=== PATIENT | female | born 1985 | race American Indian/Alaskan Native ===

== ENCOUNTER 2016-07-04 18:58 | Emergency (ER) | payer BC, MEDICAID ==
--- NOTE | 2016-07-04 20:24 | Emergency Department Report ---
Chief Complaint: Abdominal Pain Stated Complaint: NO BABY MOVEMENT UNSURE OF WKS Time Seen by Provider: 07/04/16 20:21 - HPI History of Present Illness: Patient here complaining that she has no movement from her baby for 2-3 days. She said that her period is very irregular and she does not know how many weeks that she is. She says she took a home test and it was positive. She said she had menstrual cycle March 2016 and it was regular and that she had one in May that she just had spotting. Patient denies any abdominal pain at present but says she was having abdominal pain on and off today. Denies any vaginal bleeding in, denies any discharge or painful urination. She does not have any care. Plan to do quantitative hCG and if positive will proceed to ultrasound. - ROS Review of Systems: All systems are negative unless stated in HPI above. - Exam Vital Signs: Vital Signs 07/04/16 19:28 Temperature 98.9 F Pulse Rate 64 Respiratory 18 Rate Blood Pressure 159/105 O2 Sat by Pulse 100 Oximetry Physical Exam: General: This is a 31-year-old female that is morbidly obese. Abdomen: Obese, non- tender to palpate in all quadrant. No guarding or rebound tenderness. Normal bowel sounds in all quadrants CV: S1, S2. Regular rate and rhythm. Blood pressure is 159/105 MSE screening note: Focused history and physical exam performed. Due to findings the following was ordered:see mdm ED Medical Decision Making - Medical Decision Making Medical decision making: Patient seen by provider in triage area. Appropriate protocol activated and patient to main ED to be seen by physician. ED Disposition for MSE Condition: Stable Instructions: Abdominal Pain (ED)
[2016-07-04 21:09] LABS: Basophils % (Auto) 0.6 % (0.0-1.8); Eosinophils % (Auto) 0.7 % (0.0-4.3); Hematocrit 35.6 % (30.3-42.9); Hemoglobin 11.9 gm/dl (10.1-14.3); Mean Corpuscular HGB Conc 34 % (30-34); Mean Corpuscular Hemoglobin 27 pg (28-32); Mean Corpuscular Volume 79 fl (79-97); Platelet Count 312 K/mm3 (140-440); Red Cell Distribution Width 15.2 % (13.2-15.2); White Blood Count 8.5 K/mm3 (4.5-11.0)
[2016-07-04 21:18] LABS: INR 0.98 (0.87-1.13)
[2016-07-04 21:28] LABS: Alanine Aminotransferase 11 units/L (7-56); Albumin 3.7 g/dL (3.9-5); Albumin/Globulin Ratio 0.8 %; Alkaline Phosphatase 102 units/L (35-129); Amylase 109 units/L (27-131); Bilirubin,Total 0.3 mg/dL (0.1-1.2); Lipase 62 units/L (13-60); Total Protein 8.1 g/dL (6.3-8.2)
[2016-07-04 21:35] LABS: Bilirubin,Direct < 0.2 mg/dL (0-0.2); Bilirubin,Indirect 0.1 mg/dL
[2016-07-04 22:57] LABS: Bacteria,Urine 2+ /HPF (Negative); Bilirubin,Urine NEG (Negative); Blood,Urine NEG (Negative); Ketones,Urine NEG (Negative); Leukocyte Esterase,Urine MOD (Negative); Mucus,Urine FEW /HPF; Nitrite,Urine POS (Negative); Protein,Urine <15 mg/dL mg/dL (Negative); Urobilinogen,Urine < 2.0 mg/dL (<2.0)
--- NOTE | 2016-07-04 23:58 | Ultrasound Report ---
FINAL REPORT PROCEDURE: US OB < = 14 WEEKS FETUS TECHNIQUE: Real-time transabdominal and transvaginal sonography of the uterus, placenta, amniotic fluid, adnexa, and fetus was performed with image documentation. Measurements were obtained to determine age/size. M-mode Doppler was used to document heartbeat. CPT 30876 and 04937 HISTORY: abdominal pain and COMPARISON: No prior studies are available for comparison. FINDINGS: ADDITIONAL GESTATION: None. Uterus measures 7.6 cm in length. Very early IUP is suspected with tiny gestational sac. Mean sac diameter corresponds to 5 weeks 0 days gestational age with estimated date of delivery of March 06, 2017. No yolk sac or pole is seen at this early age and viability is uncertain. Right ovary measures 2.5 x 1.5 x 1.2 cm. Left ovary measures 3.1 x 2.7 x 2.7 cm. 2.1 cm solid-appearing structure is suggested in the left ovary but this may be a collapsed cyst. Minimal free pelvic fluid is physiologic. IMPRESSION: Likely very early IUP is seen at 5 weeks 0 days gestational age. As no pole is yet identified, viability is uncertain. Correlation with serial quantitative beta HCG levels is recommended and repeat ultrasound in 2 weeks time may be useful.
--- NOTE | 2016-07-04 23:59 | Ultrasound Report ---
FINAL REPORT PROCEDURE: US OB TRANSVAGINAL TECHNIQUE: Real-time transabdominal and transvaginal sonography of the uterus, placenta, amniotic fluid, adnexa, and fetus was performed with image documentation. Measurements were obtained to determine age/size. M-mode Doppler was used to document heartbeat. CPT 98091 and 35520 HISTORY: abdominal pain and COMPARISON: No prior studies are available for comparison. FINDINGS: ADDITIONAL GESTATION: None. Uterus measures 7.6 cm in length. Very early IUP is suspected with tiny gestational sac. Mean sac diameter corresponds to 5 weeks 0 days gestational age with estimated date of delivery of March 06, 2017. No yolk sac or pole is seen at this early age and viability is uncertain. Right ovary measures 2.5 x 1.5 x 1.2 cm. Left ovary measures 3.1 x 2.7 x 2.7 cm. 2.1 cm solid-appearing structure is suggested in the left ovary but this may be a collapsed cyst. Minimal free pelvic fluid is physiologic. IMPRESSION: Likely very early IUP is seen at 5 weeks 0 days gestational age. As no pole is yet identified, viability is uncertain. Correlation with serial quantitative beta HCG levels is recommended and repeat ultrasound in 2 weeks time may be useful.
--- NOTE | 2016-07-05 04:57 | Emergency Department Report ---
ED General Adult HPI - General Chief complaint: Abdominal Pain Stated complaint: NO BABY MOVEMENT UNSURE OF WKS Time Seen by Provider: 07/04/16 20:19 Source: patient Mode of arrival: Ambulatory Limitations: No Limitations - History of Present Illness Initial comments: This is a 31-year-old female, previously unknown to me. She has a medical history of gallstone pancreatitis which has since resolved. The patient reports that gallstone pancreatitis no longer irritates her as she has monitored and modified her diet and she consumes. She is 1, para 0, not really certain what her last period is. The patient presents to the ER with complaint of inability to feel the fetus moving around. She reports that she felt the fetus moving around last week. She does not have any abdominal pain at this time, there is no chest pain or shortness of breath, there is no vaginal discharge, there are no irritative or obstructive urinary symptoms. Symptoms have no exacerbating or relieving factors. -: Gradual Severity scale (0 -10): 3 Consistency: intermittent Improves with: none Worsens with: none Associated Symptoms: denies: confusion, chest pain, cough, diaphoresis, fever/ chills, headaches, loss of appetite, malaise, nausea/vomiting, rash, seizure, shortness of breath, syncope, weakness - Related Data Previous Rx's Medication Instructions Recorded Last Taken Type Doxylamine/Pyridoxine HCl 1 each PO QHS PRN #30 tablet. 07/05/16 Unknown Rx [Diclegilakisha Mondragon 10-10 mg Tablet] Nitrofurantoin [place]/M-Cryst 100 mg PO Q12HR #14 capsule 07/05/16 Unknown Rx [Macrobid CAP] Vit W-Ca,Fe,FA(<1 mg) 1 each PO QDAY #30 tablet 07/05/16 Unknown Rx [ Vitamins] Allergies Allergy/AdvReac Type Severity Reaction Status Date / Time No Known Allergies Allergy Verified 08/22/15 22:34 ED Review of Systems ROS: Stated complaint: NO BABY MOVEMENT UNSURE OF WKS Other details as noted in HPI Constitutional: denies: malaise Eyes: denies: vision change ENT: denies: epistaxis Respiratory: denies: cough Cardiovascular: denies: chest pain Gastrointestinal: denies: abdominal pain Genitourinary: denies: urgency, frequency, discharge, abnormal menses Musculoskeletal: denies: back pain Skin: denies: rash, lesions Neurological: denies: headache, weakness Psychiatric: denies: anxiety ED Past Medical Hx - Past Medical History Hx Congestive Heart Failure: No Hx Diabetes: No Hx Asthma: No Hx COPD: No Additional medical history: MORBID OBESITY - Surgical History Additional Surgical History: GASTRIC BYPASS NOVEMBER 2014 - Social History Smoking Status: Never Smoker - Medications Home Medications: Home Medications Medication Instructions Recorded Confirmed Last Taken Type Doxylamine/Pyridoxine HCl 1 each PO QHS PRN #30 tablet.dr 07/05/16 Unknown Rx [Diclegis Dr 10-10 mg Tablet] Nitrofurantoin [place]/M-Cryst 100 mg PO Q12HR #14 capsule 07/05/16 Unknown Rx [Macrobid CAP] Vit W-Ca,Fe,FA(<1 mg) 1 each PO QDAY #30 tablet 07/05/16 Unknown Rx [ Vitamins] ED Physical Exam - General Limitations: No Limitations General appearance: obese - Head Head exam: Present: atraumatic, normocephalic - Eye Eye exam: Present: normal appearance, EOMI. Absent: nystagmus - ENT ENT exam: Present: normal exam, normal orophraynx, mucous membranes moist - Neck Neck exam: Present: normal inspection, full ROM. Absent: tenderness, meningismus - Respiratory Respiratory exam: Present: normal lung sounds bilaterally. Absent: respiratory distress, wheezes, rales, rhonchi, stridor, chest wall tenderness, accessory muscle use, decreased breath sounds, prolonged expiratory - Cardiovascular Cardiovascular Exam: Present: regular rate, normal rhythm, normal heart sounds. Absent: bradycardia, tachycardia, irregular rhythm, systolic murmur, diastolic murmur, rubs, gallop - GI/Abdominal GI/Abdominal exam: Present: soft, normal bowel sounds. Absent: distended, tenderness, guarding, rebound, rigid, pulsatile mass - Extremities Exam Extremities exam: Present: normal inspection, full ROM, normal capillary refill. Absent: tenderness, pedal edema, joint swelling, calf tenderness - Back Exam Back exam: Present: normal inspection, full ROM. Absent: tenderness, CVA tenderness (R), CVA tenderness (L), muscle spasm, paraspinal tenderness, vertebral tenderness - Neurological Exam Neurological exam: Present: alert, oriented X3, normal gait, other (Extraocular movements intact. Tongue midline. No facial droop. Facial sensation intact to light touch in the V1, V2, V3 distribution bilaterally. 5 and 5 strength in 4 extremities.. Sensation is intact to light touch in 4 extremities.). Absent : motor sensory deficit - Psychiatric Psychiatric exam: Present: normal affect, normal mood - Skin Skin exam: Present: warm, dry, intact, normal color. Absent: rash ED Course Vital Signs 07/04/16 07/05/16 19:28 01:24 Temperature 98.9 F 98.0 F Pulse Rate 64 83 Respiratory 18 16 Rate Blood Pressure 159/105 Blood Pressure 118/87 [Left] O2 Sat by Pulse 100 100 Oximetry - Reevaluation(s) Reevaluation #1: 07/05/16 04:54 Differential diagnosis: , worried well, reassurance Assessment and plan: 31-year-old female who complains of inability to feel the fetus moving around. She has no abdominal pain, rebound, guarding or tenderness. She has no urinary symptoms. Ultrasound demonstrates intrauterine at 5 weeks and 0 days, no pole noted, therefore it is very unlikely that the patient actually felt the fetus moving around. She was counseled appropriately and reassured. She is instructed to follow up with outpatient MEASUREMENT ADVISOR. She will be discharged. Return precautions are extensively reviewed. 07/05/16 04:55 ED Medical Decision Making - Lab Data Result diagrams: 07/04/16 20:50 Vital Signs 07/04/16 07/05/16 19:28 01:24 Temperature 98.9 F 98.0 F Pulse Rate 64 83 Respiratory 18 16 Rate Blood Pressure 159/105 Blood Pressure 118/87 [Left] O2 Sat by Pulse 100 100 Oximetry Lab Results 07/04/16 07/04/16 07/04/16 Range/Units 20:50 20:50 20:50 WBC 8.5 (4.5-11.0) K/mm3 RBC 4.50 (3.65-5.03) M/mm3 Hgb 11.9 (10.1-14.3) gm/dl Hct 35.6 (30.3-42.9) % MCV 79 (79-97) fl MCH 27 L (28-32) pg MCHC 34 (30-34) % RDW 15.2 (13.2-15.2) % Plt Count 312 (140-440) K/mm3 Lymph % (Auto) 17.5 (13.4-35.0) % [place] % (Auto) 8.2 H (0.0-7.3) % Eos % (Auto) 0.7 (0.0-4.3) % Baso % (Auto) 0.6 (0.0-1.8) % Lymph # 1.5 (1.2-5.4) K/mm3 [place] # 0.7 (0.0-0.8) K/mm3 Eos # 0.1 (0.0-0.4) K/mm3 Baso # 0.0 (0.0-0.1) K/mm3 Seg Neutrophils % 73.0 H (40.0-70.0) % Seg Neutrophils # 6.2 (1.8-7.7) K/mm3 PT 12.9 (12.2-14.9) Sec. INR 0.98 (0.87-1.13) APTT 32.0 (24.2-36.6) Sec. Total Bilirubin 0.3 (0.1-1.2) mg/dL Direct Bilirubin < 0.2 (0-0.2) mg/dL Indirect Bilirubin 0.1 mg/dL AST 12 (5-40) units/L ALT 11 (7-56) units/L Alkaline Phosphatase 102 (35-129) units/L Total Protein 8.1 (6.3-8.2) g/dL Albumin 3.7 L (3.9-5) g/dL Albumin/Globulin Ratio 0.8 % Amylase 109 (27-131) units/L Lipase 62 H (13-60) units/L HCG, Quant (0-4) mIU/mL Urine Color (Yellow) Urine Turbidity (Clear) Urine pH (5.0-7.0) Ur Specific [place] (1.003-1.030) Urine Protein (Negative) mg/dL Urine Glucose (UA) (Negative) mg/dL Urine Ketones (Negative) mg/dL Urine Blood (Negative) Urine Nitrite (Negative) Urine Bilirubin (Negative) Urine Urobilinogen (<2.0) mg/dL Ur Leukocyte Esterase (Negative) Urine WBC (Auto) (0.0-6.0) /HPF Urine RBC (Auto) (0.0-6.0) /HPF U Epithel Cells (Auto) (0-13.0) /HPF Urine Bacteria (Auto) (Negative) /HPF Urine Mucus /HPF 07/04/16 07/04/16 Range/Units 20:50 21:55 WBC (4.5-11.0) K/mm3 RBC (3.65-5.03) M/mm3 Hgb (10.1-14.3) gm/dl Hct (30.3-42.9) % MCV (79-97) fl MCH (28-32) pg MCHC (30-34) % RDW (13.2-15.2) % Plt Count (140-440) K/mm3 Lymph % (Auto) (13.4-35.0) % [place] % (Auto) (0.0-7.3) % Eos % (Auto) (0.0-4.3) % Baso % (Auto) (0.0-1.8) % Lymph # (1.2-5.4) K/mm3 [place] # (0.0-0.8) K/mm3 Eos # (0.0-0.4) K/mm3 Baso # (0.0-0.1) K/mm3 Seg Neutrophils % (40.0-70.0) % Seg Neutrophils # (1.8-7.7) K/mm3 PT (12.2-14.9) Sec. INR (0.87-1.13) APTT (24.2-36.6) Sec. Total Bilirubin (0.1-1.2) mg/dL Direct Bilirubin (0-0.2) mg/dL Indirect Bilirubin mg/dL AST (5-40) units/L ALT (7-56) units/L Alkaline Phosphatase (35-129) units/L Total Protein (6.3-8.2) g/dL Albumin (3.9-5) g/dL Albumin/Globulin Ratio % Amylase (27-131) units/L Lipase (13-60) units/L HCG, Quant 524.4 H (0-4) mIU/mL Urine Color Yellow (Yellow) Urine Turbidity Cloudy (Clear) Urine pH 5.0 (5.0-7.0) Ur Specific [place] 1.014 (1.003-1.030) Urine Protein <15 mg/dl (Negative) mg/dL Urine Glucose (UA) Neg (Negative) mg/dL Urine Ketones Neg (Negative) mg/dL Urine Blood Neg (Negative) Urine Nitrite Pos (Negative) Urine Bilirubin Neg (Negative) Urine Urobilinogen < 2.0 (<2.0) mg/dL Ur Leukocyte Esterase Mod (Negative) Urine WBC (Auto) 34.0 H (0.0-6.0) /HPF Urine RBC (Auto) 3.0 (0.0-6.0) /HPF U Epithel Cells (Auto) 14.0 H (0-13.0) /HPF Urine Bacteria (Auto) 2+ (Negative) /HPF Urine Mucus Few /HPF Critical care attestation.: If time is entered above; I have spent that time in minutes in the direct care of this critically ill patient, excluding procedure time. ED Disposition Clinical Impression: Qualifiers: Weeks of gestation: less than 8 weeks Qualified Code(s): Z3A.01 - Less than 8 weeks gestation of Disposition: DISCHARGED TO HOME OR SELFCARE Is pt being admited?: No Does the pt Need Aspirin: No Condition: Stable Instructions: (ED) Additional Instructions: Follow-up with a primary care [facility]MENT ADVISOR doctor within the next week to initiate care. Take nausea medication as needed, take the vitamins as directed, take the antibiotic therapy for probable urinary tract infection as directed. Please note that initial blood pressure was somewhat elevated, therefore it is very important to closely follow up with an outpatient MEASUREMENT ADVISOR doctor. Return to the ER right away with severe pain, nausea, vomiting, fevers or chills, inability to tolerate liquid feeds, vaginal bleeding. Make certain to avoid heavy and spicy foods. Referrals: PRIMARY CAREMD [Primary Care Provider] - 3-5 Days NOAH MAYO MD [Staff Physician] - 3-5 Days [facility] [Provider Group] - 3-5 Days
[2016-07-05 05:40] VITALS: BP 138/87
== END 2016-07-05 05:58 | disposition home or self-care (01) ==
LOC: ED 18:58
DX: Z34.01 Encounter for supervision of normal first pregnancy, first trimester (principal); E66.01 Morbid (severe) obesity due to excess calories; Z3A.01 Less than 8 weeks gestation of pregnancy
CPT/HCPCS: 36415; 76801; 76817; 80074; 81001; 82150; 83690; 84702; 85025; 85610; 85730

== ENCOUNTER 2017-02-04 11:42 | Outpatient (CLI) | payer MEDICAID ==
--- NOTE | 2017-02-04 13:44 | Ultrasound Report ---
BIOPHYSICAL PROFILE: 2 - breathing movements 2 - movements 2 - posture and tone 2 - Qualitative amniotic fluid volume 8 - TOTAL SCORE OF POSSIBLE 8 Heart Rate (bpm) 136
--- NOTE | 2017-02-04 13:45 | Ultrasound Report ---
Limited OB ultrasound. Findings: A single intrauterine is identified in transverse position with the head on the maternal left. The ROSARIO is normal at 12.7 cm. The heart rate is 135 beats per minute.
== END 2017-02-04 13:00 | disposition home or self-care (01) ==
LOC: TRG 11:42
PROVIDERS: ATTEND Obstetrics & Gynecology
DX: O32.2XX0 Maternal care for transverse and oblique lie, not applicable or unspecified (principal); O47.03 False labor before 37 completed weeks of gestation, third trimester; Z3A.35 35 weeks gestation of pregnancy
CPT/HCPCS: 76815; 76819

== ENCOUNTER 2017-02-21 05:34 | Inpatient (IN) | payer MEDICAID ==
[2017-02-21] MEDS ORDERED: LACTATED RINGERS 1,000 ML ONE (05:59)
[2017-02-21] MEDS ORDERED: REGLAN IV ONE (06:14)
[2017-02-21] MEDS ORDERED: PEPCID IV ONE (06:14)
[2017-02-21] MEDS ORDERED: BICITRA PO ONE (06:14)
[2017-02-21 06:33] LABS: Basophils % (Auto) 0.4 % (0.0-1.8); Eosinophils % (Auto) 0.5 % (0.0-4.3); Hemoglobin 12.6 gm/dl (10.1-14.3); Mean Corpuscular HGB Conc 34 % (30-34); Mean Corpuscular Hemoglobin 28 pg (28-32); Mean Corpuscular Volume 81 fl (79-97); Platelet Count 323 K/mm3 (140-440); Red Blood Count 4.56 M/mm3 (3.65-5.03); Red Cell Distribution Width 14.8 % (13.2-15.2); White Blood Count 12.2 K/mm3 (4.5-11.0)
[2017-02-21] MEDS ORDERED: ANCEF/STERILE WATER 2 GM/20 ML 2 GM/20 ML SYRINGE IV ONE (06:51)
[2017-02-21] MEDS ORDERED: PITOCin/NS 20 UNIT/1000ML DRIP 20 UNITS/1,000 ML BAG IV SCH ×2 (07:00→16:00)
[2017-02-21] MEDS ORDERED: ANCEF/STERILE WATER 2 GM/20 ML IV NR (07:00)
[2017-02-21] MEDS ORDERED: LACTATED RINGERS 1,000 ML IV SCH (07:00)
--- NOTE | 2017-02-21 07:22 | Anesthesia Consultation ---
Anesthesia Consult and Med Hx Date of service: 02/21/17 - Airway Anesthetic Teeth Evaluation: Good ROM Head & Neck: Adequate Mental/Hyoid Distance: Adequate Mallampati Class: Class II Intubation Access Assessment: Probably Good - Pre-Operative Health Status ASA Pre-Surgery Classification: ASA3 Proposed Anesthetic Plan: Epidural, Spinal - Pulmonary Hx Asthma: No COPD: No Hx Pneumonia: No - Cardiovascular System Hx Hypertension: Yes ([facility] 09/2016) - Central Nervous System Hx Seizures: No Hx Psychiatric Problems: No - Endocrine Hx Renal Disease: No Hx End Stage Renal Disease: No Hx Hypothyroidism: No Hx Hyperthyroidism: No - Hematic Hx Anemia: Yes Hx Sickle Cell Disease: No - Other Systems Hx Alcohol Use: No Hx Obesity: Yes (had gastric bypass 2014)
[2017-02-21] MEDS ORDERED: DILAUDID IV PRN (08:02)
[2017-02-21] MEDS ORDERED: NARCAN 0.4 MG/1 ML IV PRN ×2 (08:02→15:24)
[2017-02-21] MEDS ORDERED: ZOFRAN IV PRN (08:02)
[2017-02-21] MEDS ORDERED: TORADOL IV PRN (08:02)
--- NOTE | 2017-02-21 08:02 | Anesthesia Day of Surgery ---
Anesthesia Day of Surgery - Day of Surgery Patient Examined: Yes Patient H&P Reviewed: Yes Patient is NPO: Yes
--- NOTE | 2017-02-21 08:05 | History and Physical Report ---
History of Present Illness Date of examination: 02/21/17 Date of admission: 02/21/17 05:34 Chief complaint: Scheduled C Section History of present illness: Pt is a 31yo BF EDC 03/10/17; EGA 37 4/7 weeks presents for C Section due to Chronic hypertension and Breech presentation. She received care at [facility] since 16 weeks, and course has been complicated by Chronic hypertension for which she takes Labetolol 100mg BID and followed by [facility], along with history of Gastric bypass and Obesity. records are available and GBS is unknown. Past History Past Medical History: hypertension, other (lupus) Past Surgical History: gastric bypass BILINGUAL SALES REPRESENTATIVE History: herpes Family/Genetic History: diabetes, hypertension, cancer Social history: no significant social history, single - Obstetrical History Expected Date of Delivery: 03/10/17 Actual Gestation: 37 Week(s) 4 Day(s) : 1 Medications and Allergies Allergies Allergy/AdvReac Type Severity Reaction Status Date / Time No Known Allergies Allergy Verified 08/22/15 22:34 Home Medications Medication Instructions Recorded Confirmed Last Taken Type Vit W-Ca,Fe,FA(<1 mg) 1 each PO QDAY #30 tablet 07/05/16 02/21/1702/20 Rx [ Vitamins] Aspirin [Aspirin BABY CHEW TAB] 81 mg PO QDAY 02/21/17 02/21/17 02/20/17 History Labetalol [Normodyne TAB] 100 mg PO BID 02/21/17 02/21/17 2 Weeks Ago History Active Meds: Active Medications Cefazolin Sodium (Ancef/Sterile Water 2 Gm/20 Ml) 2 gm IV PREOP NR Stop: 02/21/17 18:00 Lactated Ringer's (Lactated Ringers) 1,000 mls @ 2,250 mls/hr IV PREOP AL Stop: 02/22/17 07:27 Last Admin: 02/21/17 06:05 Dose: 2,250 mls/hr Oxytocin/Sodium Chloride (Pitocin/Ns 20 Unit/1000ml Drip) 20 units in 1,000 mls @ 0 mls/hr IV TITR AL PRN Reason: As Directed Review of Systems All systems: negative - Vital Signs Vital signs: Vital Signs Temp Pulse Resp BP Pulse Ox 98.3 F 75 20 132/72 99 02/21/17 06:12 02/21/17 06:12 02/21/17 06:12 02/21/17 06:12 02/21/17 06:12 Temp Pulse Resp BP Pulse Ox 98.3 F 70 20 132/72 98 02/21/17 06:12 02/21/17 07:56 02/21/17 06:12 02/21/17 06:12 02/21/17 07:56 - Physical Exam Breasts: Positive: deferred Cardiovascular: Regular rate Lungs: Positive: Clear to auscultation Abdomen: Positive: normal appearance Genitourinary (Female): Positive: normal external genitalia Uterus: Positive: enlarged Extremities: Positive: normal - Obstetrical FHR: category 1 Uterine Contraction Monitor Mode: External Results Result Diagrams: 02/21/17 06:05 Abnormal lab results 02/21/17 Range/Units 06:05 WBC 12.2 H (4.5-11.0) K/mm3 Lymph % (Auto) 11.2 L (13.4-35.0) % Seg Neutrophils % 83.1 H (40.0-70.0) % Seg Neutrophils # 10.1 H (1.8-7.7) K/mm3 All other labs normal. Assessment and Plan - Patient Problems (1) 37 weeks gestation of Onset Date: 02/21/17 Current Visit: Yes Status: Acute Plan to address problem: A: IUP @ 37 4/7 weeks Chronic hypertension Breech presentation History of Gastric Bypass P: Admit to L&D for C Section (2) Breech presentation Onset Date: 02/21/17 Current Visit: Yes Status: Acute Qualifiers: Fetus number: single or unspecified fetus Qualified Code(s): O32.1XX0 - Maternal care for breech presentation, not applicable or unspecified
[2017-02-21] MEDS ORDERED: SODIUM CHLORIDE FLUSH SYRINGE 10 ML IV NR ×2 (09:00→16:00)
[2017-02-21] MEDS ORDERED: REGLAN ONE (12:02)
[2017-02-21] MEDS ORDERED: BICITRA ONE (12:04)
[2017-02-21] MEDS ORDERED: NEO SYNEPHRINE/NS Syringe(OR USE) IV ONE (13:00)
[2017-02-21] MEDS ORDERED: WATER FOR IRRIG STERILE IR ONE (13:55)
[2017-02-21] MEDS ORDERED: NACL 0.9% IR ONE (13:55)
[2017-02-21] MEDS ORDERED: MORPHINE ONE (13:57)
--- NOTE | 2017-02-21 15:20 | Operative Report ---
Operative Report Operative Report: Date of procedure: 02/21/2017 Pre-operative diagnosis: 1. Intrauterine at 37-4/7 weeks 2. Chronic hypertension 3. Breech presentation 4. History of gastric bypass Post-operative diagnosis: Same Procedure name(s): Primary low transverse section Surgeon: Fam Gerard MD Licensed Insurance Agent: None Anesthesia: Spinal anesthesia by Dr. Perez EBL: 600 mL's Findings: A 2333 g female infant Apgars 8 at 1 minute and 9 at 5 minutes. Clear amniotic fluid. Normal uterus. Normal tubes and ovaries bilaterally. Procedure: After the patient was prepped and draped in usual sterile fashion, and after satisfactory level of epidural anesthesia was obtained, the skin knife was used to make a transverse skin incision. The incision was excised down to layer of the fascia, which was nicked in the midline and extended laterally using the Bovie cautery. The rectus muscles were dissected off the rectus fascia both superiorly and inferiorly. The rectus bellies in the midline, and the peritoneum was entered under direct visualization. The peritoneal incision was extended superiorly and inferiorly. A bladder flap was created and the bladder blade was then placed. The uterus was scored in a curvilinear linear fashion, entered in the midline revealing clear amniotic fluid. The infant's body was turned so that the 's head was delivered onto the surgical field, and the oropharynx and nasopharynx were bulb suctioned. The rest of the infant's body was delivered, cord was doubly clamped and cut and the was handed to the waiting respiratory team. Cord blood was then obtained. The placenta was manually removed from the uterus , and the uterus removed from its normal anatomical position. After gentle uterine lavage, the incision was inspected and found to be without extensions. It was then closed in 2 layers using 0 Vicryl suture in a running interlocking fashion, the second layer imbricating the first. After good hemostasis was achieved, copious amounts or irrigation was performed, and the gutters were suctioned free of blood and blood clots. Tisseel sealant was sprayed across the uterine incision. The uterus was then returned to its normal anatomical position, and after excellent hemostasis assured, the peritoneum was re- approximated using 3-0 Vicryl suture in a running interlocking fashion, and then the rectus muscles were re-approximated using 3-0 Vicryl suture in a figure -of-eight configuration. The fascia was then re-approximated using 0 Vicryl suture in running interlocking fashion. The subcutaneous layer was made hemostatic using Bovie cautery, the Tisseel sealant was sprayed across the fascial incision and the skin edges re-approximated using 4-0 Vicryl suture in a sub-cuticular fashion. Patient tolerated the procedure well was transported to recovery in stable condition.
[2017-02-21] MEDS ORDERED: LANSINOH TP PRN (15:24)
[2017-02-21] MEDS ORDERED: NORCO 5/325 PO PRN (15:24)
[2017-02-21] MEDS ORDERED: TYLENOL PO PRN (15:24)
[2017-02-21] MEDS ORDERED: TUCKS PAD TP PRN (15:24)
[2017-02-21] MEDS ORDERED: MOTRIN PO PRN (15:24)
[2017-02-21] MEDS ORDERED: MILK OF MAGNESIA PO PRN (15:24)
[2017-02-21] MEDS ORDERED: MYLICON PO PRN (15:24)
[2017-02-21] MEDS ORDERED: SENOKOT PO PRN (15:24)
[2017-02-21] MEDS: BENADRYL IV PRN ×3 (18:06→23:01)
[2017-02-21] MEDS: D5LR 1,000 ML IV SCH (18:06)
[2017-02-21] MEDS: ANCEF/NS 1 GM/50 ML 1 GM/50 ML BAG IV SCH (18:07)
[2017-02-22] MEDS: ANCEF/NS 1 GM/50 ML 1 GM/50 ML BAG IV SCH (02:16)
[2017-02-22] MEDS: D5LR 1,000 ML IV SCH (02:30)
[2017-02-22 05:04] LABS: Hemoglobin 10.6 gm/dl (10.1-14.3)
[2017-02-22] MEDS: NORMODYNE PO SCH ×2 (10:17→22:29)
[2017-02-22] MEDS: PRENATAL VITAMIN PO SCH (10:17)
[2017-02-22] MEDS: FEOSOL PO SCH (10:17)
[2017-02-22] MEDS: PERCOCET 5/325 PO PRN ×2 (10:18→19:38)
--- NOTE | 2017-02-22 11:09 | Progress Note ---
Assessment and Plan - Patient Problems (1) 37 weeks gestation of Onset Date: 02/21/17 Current Visit: Yes Status: Resolved (2) Breech presentation Onset Date: 02/21/17 Current Visit: Yes Status: Resolved Qualifiers: Fetus number: single or unspecified fetus Qualified Code(s): O32.1XX0 - Maternal care for breech presentation, not applicable or unspecified (3) Status post primary low transverse section Onset Date: 02/22/17 Current Visit: Yes Status: Resolved Plan to address problem: A: S/P C Section - POD #1 Doing well Chronic hypertension - BP's stable on Labetolol 100mg BID P: Continue RPOC Anticipate discharge in 24-48hrs Subjective - Subjective Date of service: 02/22/17 Principal diagnosis: s/p Repeat C Section with BTL - POD #1 Interval history: Pt is feeling well without complaints. Bleeding improved. Tolerating a reg diet without nausea or vomiting. Patient reports: appetite normal, voiding normally, pain well controlled, flatus , ambulating normally : doing well, nursing well, bottle feeding Objective - Vital Signs Latest vital signs: Vital Signs Temp Pulse Resp BP BP Pulse Ox 02/22/17 10:17 72 116/68 02/22/17 08:15 98 F 74 20 116/82 02/22/17 05:05 98.8 F 67 20 138/82 02/22/17 02:11 18 02/22/17 01:00 98.6 F 72 20 106/46 02/21/17 20:43 98.5 F 70 20 136/74 02/21/17 17:00 99 F 70 18 117/78 02/21/17 15:22 98.1 F 67 16 121/59 99 Intake and Output 02/21/17 02/22/17 02/22/17 22:59 06:59 14:59 Intake Total 670 1120 120 Output Total 300 1500 Balance 370 -380 120 Intake: IV 550 1000 ANCEF/NS 1 GM/50 ML 1 gm 50 In 50 ml @ 100 mls/hr IV Q8H AL Rx#:[id number] D5lr 1,000 ml @ 125 mls/ 1000 hr IV DIRECT AL Rx#: [id number] Oral 120 Intake, Free Water 120 120 Output: Urine 300 1500 Indwelling Catheter 1500 Other: Total, Intake Amount 120 Total, Output Amount 400 - Exam Breasts: Present: deferred Cardiovascular: Present: Regular rate Lungs: Present: Clear to auscultation Abdomen: Present: normal appearance, soft Uterus: Present: normal, firm, fundal height below umbilicus Extremities: Present: normal Incision: Present: normal, dry, intact, dressed - Labs Labs: Laboratory Tests 02/21/17 02/21/17 02/22/17 06:05 06:05 04:35 WBC 12.2 H RBC 4.56 Hgb 12.6 10.6 Hct 37.0 32.0 MCV 81 MCH 28 MCHC 34 RDW 14.8 Plt Count 323 Lymph % (Auto) 11.2 L [place] % (Auto) 4.8 Eos % (Auto) 0.5 Baso % (Auto) 0.4 Lymph # 1.4 [place] # 0.6 Eos # 0.1 Baso # 0.0 Seg Neutrophils % 83.1 H Seg Neutrophils # 10.1 H Blood Type O POSITIVE Antibody Screen Negative
[2017-02-22] MEDS ORDERED: M-M-R II VACCINE SUB-Q ONE (15:25)
[2017-02-22] MEDS ORDERED: BOOSTRIX IM ONE (15:25)
[2017-02-23] MEDS: PERCOCET 5/325 PO PRN ×2 (02:30→08:43)
[2017-02-23] MEDS: PRENATAL VITAMIN PO SCH (08:44)
[2017-02-23] MEDS: FEOSOL PO SCH (08:44)
[2017-02-23] MEDS: NORMODYNE PO SCH (08:45)
--- NOTE | 2017-02-23 09:38 | Progress Note ---
Assessment and Plan - Patient Problems (1) 37 weeks gestation of Onset Date: 02/21/17 Current Visit: Yes Status: Resolved (2) Breech presentation Onset Date: 02/21/17 Current Visit: Yes Status: Resolved Qualifiers: Fetus number: single or unspecified fetus Qualified Code(s): O32.1XX0 - Maternal care for breech presentation, not applicable or unspecified (3) Status post primary low transverse section Onset Date: 02/22/17 Current Visit: Yes Status: Resolved Plan to address problem: A: S/P C Section - POD #2 Doing well Chronic hypertension - BP's stable on Labetolol 100mg BID P: May go home today Subjective - Subjective Date of service: 02/23/17 Principal diagnosis: s/p Repeat C Section with BTL - POD #2 Interval history: Pt is feeling well without complaints. Tolerating a reg diet without nausea or vomiting, ambulating and voiding without difficulty. Patient reports: appetite normal, voiding normally, pain well controlled, flatus , ambulating normally : doing well, nursing well, bottle feeding Objective - Vital Signs Latest vital signs: Vital Signs Temp Pulse Resp BP BP 02/23/17 08:45 136/78 02/23/17 02:30 20 02/22/17 23:55 98.1 F 95 H 20 130/76 02/22/17 22:29 86 120/70 02/22/17 19:38 16 02/22/17 18:42 98.7 F 73 20 115/63 02/22/17 10:17 72 116/68 Intake and Output 02/22/17 02/23/17 02/23/17 22:59 06:59 14:59 Intake Total 120 360 Output Total 400 Balance -280 360 Intake: Oral 120 360 Output: Urine 400 Void 400 Other: Total, Intake Amount 120 240 Total, Output Amount 400 # Voids Void 1 1 - Exam Breasts: Present: deferred Cardiovascular: Present: Regular rate Lungs: Present: Clear to auscultation Abdomen: Present: normal appearance Uterus: Present: normal, firm, fundal height below umbilicus Extremities: Present: normal Incision: Present: normal, dry, intact
[2017-02-23 11:07] VITALS: BP 125/65
--- NOTE | 2017-02-23 11:14 | Discharge Summary ---
Providers - Providers Date of Admission: 02/21/17 05:34 Date of discharge: 02/23/17 Attending physician: KYRA VILLALOBOS Primary care physician: KYRA VILLALOBOS Hospitalization Reason for admission: section, IUP at term, other (Breech presentation) Delivery: Procedure: section, primary low transverse Episiotomy: none Incision: normal, dry, intact Other procedures: none complications: none Discharge diagnosis: IUP at term delivered Silva baby: female Hospital course: Pt is a 31yo BF EDC 03/10/17; EGA 37 4/7 weeks who presented for C Section due to Chronic hypertension and Breech presentation. She received care at [facility] since 16 weeks, and course has been complicated by Chronic hypertension for which she takes Labetolol 100mg BID and followed by [facility], along with history of Gastric bypass and Obesity. records are available and GBS is unknown. Pt underwent an uncomplicated C Section, and tolerated the procedure well. Post operative course was unremarkable and by POD #2 she was tolerating a reg diet without nausea or vomiting, ambulating and voiding without difficulty, and therefore was discharged to home on POD #2 in stable condition. Condition at discharge: Good Disposition: DC-[id number] TO HOME OR SELFCARE - Discharge Diagnoses (1) 37 weeks gestation of Status: Resolved (2) Breech presentation Status: Resolved Qualifiers: Fetus number: single or unspecified fetus Qualified Code(s): O32.1XX0 - Maternal care for breech presentation, not applicable or unspecified (3) Status post primary low transverse section Status: Resolved Plan - Discharge Medications Prescriptions: Ferrous Sulfate [Feosol 325 MG tab] 325 mg PO BID #60 tablet HYDROcodone/APAP 5-325 [[place] 5/325] 1 each PO Q6HR PRN #30 tablet PRN Reason: Pain Ibuprofen [Motrin] 800 mg PO Q8HR PRN #30 tablet PRN Reason: Moder Pain Unrelieved By [place] Labetalol [Normodyne TAB] 100 mg PO BID #60 tablet Vit W-Ca,Fe,FA(<1 mg) [ Vitamins] 1 each PO DAILY #30 tablet - Provider Discharge Summary Activity: routine, no sex for 6 weeks, no heavy lifting 4 weeks, no strenuous exercise Diet: routine Instructions: routine Additional instructions: [] Smoking cessation referral if applicable(refer to patient education folder for contact #) [] Refer to [facility]'s [facility] Booklet Call your doctor immediately for: * Fever > 100.5 * Heavy vaginal bleeding ( >1 pad per hour) * Severe persistent headache * Shortness of breath * Reddened, hot, painful area to leg or breast * Drainage or odor from incision. * Keep incision clean and dry at all times and follow doctor's instructions regarding bathing/showering - Follow up plan Follow up: KYRA VILLALOBOS MD [Primary Care Provider] - 14 Days
== END 2017-02-23 15:30 | disposition home or self-care (01) | DRG 765 ==
LOC: APU 05:34 → OB 17:03
PROVIDERS: ADMIT Obstetrics & Gynecology Gynecology; ATTEND Obstetrics & Gynecology Gynecology
PROC: 10D00Z1 Extraction of Products of Conception, Low, Open Approach (ICD-10-PCS; principal; 2017-02-21)
PROC: 3E0234Z Introduction of Serum, Toxoid and Vaccine into Muscle, Percutaneous Approach (ICD-10-PCS; 2017-02-22)
DX: O32.1XX0 Maternal care for breech presentation, not applicable or unspecified (principal); O16.4 Unspecified maternal hypertension, complicating childbirth; Z68.43 Body mass index [BMI] 50.0-59.9, adult; O99.214 Obesity complicating childbirth; E66.9 Obesity, unspecified; Z37.0 Single live birth; Z3A.37 37 weeks gestation of pregnancy; Z98.84 Bariatric surgery status; Z23 Encounter for immunization; Z83.3 Family history of diabetes mellitus; Z82.49 Family history of ischemic heart disease and other diseases of the circulatory system; Z80.9 Family history of malignant neoplasm, unspecified
CPT/HCPCS: 36415; 85014; 85018; 85025; 86850; 86900; 86901; 99211; C9250; G0463; J0690; J1200; J1885; J2270; J2370; J2405; J2590; J2765; J7120; J7121